=== PATIENT | male | born 1985 | race Caucasian/White ===

== ENCOUNTER 2022-09-07 13:40 | Emergency (ER) | payer OTHER, SELFPAY ==
[2022-09-07 13:58] VITALS: BP 132/88; PULSE 82; RESP 16; TEMP 36.9; O2SAT 99
--- NOTE | 2022-09-07 15:41 | ED.CHESTPAIN ---
HPI - Chest Pain General Chief Complaint: Chest Pain Stated Complaint: Covid+ one week ago, Heart pain Time Seen by Provider: 09/07/22 15:29 History of Present Illness HPI narrative: This 36-year-old male comes in reporting some discomfort in his left anterior chest. This began 3 or 4 days ago soon after drinking some coffee into which he placed some Lion's magaly. This is a mushroom derivative. Soon after that he began to have some chest discomfort and palpitations. He has not used this combination in his coffee before. He is otherwise in good health and has no cardiac risk factors. He arrives here with normal vital signs. He denies having any nausea, vomiting, shortness of breath, or diaphoresis. He did feel some lightheadedness. Related Data Home Medications Medication Instructions Recorded Confirmed Advair Diskus 09/07/22 Allergies Allergy/AdvReac Type Severity Reaction Status Date / Time No Known Drug Allergies Allergy Verified 09/07/22 14:01 Review of Systems Status of ROS Reports: 10 or more systems reviewed and unremarkable except as noted in History and below Narrative Constitutional: No fevers, no weight gain or loss. Eyes: No discharge. No vision changes. HENT: No congestion, no sore throat, no ear pain. Cardiovascular: Episodes of chest discomfort initially started with some palpitations also. Respiratory: No shortness of breath, no wheezes, no cough. Gastrointestinal: No abdominal pain, no vomiting, no diarrhea. Genitourinary: No dysuria, no hematuria. Musculoskeletal: Normal range of motion. Skin: No rashes, no pruritis. Neurological: No dizziness, weakness, sensory change, speech change. Endo/Heme/Allergies: No bruising or bleeding. No polydipsia. Pysch: no suicidality, no anxiety, no insomnia. All other systems reviewed and are negative. Exam Narrative Exam Narrative: Constitutional: Well-developed, well-nourished, no acute distress. HEENT: Normocephalic, atraumatic. Neck: Normal range of motion. Nontender. Supple. Heart: Regular. No murmurs. Normal rate. Intact distal pulses. Lungs: Clear to auscultation. No chest discomfort. No wheezes, rhonchi, or rales. Abdomen: Normal bowel sounds. Nontender. No rebound tenderness. Genitalia: Deferred. Back: No midline tenderness. Normal range of motion. Extremities: Normal range of motion. No injury. Skin: Intact. No rash. Warm. No erythema or pallor. Neurologic: No altered sensation. No weakness. Alert and oriented. Psychiatric: No suicidality. No anxiety or depression. No insomnia. Nursing notes and vitals signs are reviewed. Const Vital Signs, click to edit/add: Vital Signs - 24 hr 09/07/22 13:58 Temperature 98.4 F Pulse Rate [Left Pulse Oximeter] 82 Respiratory Rate 16 Blood Pressure [Right Upper Arm] 132/88 Pulse Oximetry 99 Oxygen Delivery Method Room Air Course Vital Signs Vital signs: Initial Vital Signs Temperature 98.4 F 09/07/22 13:58 Temperature Source Temporal Artery Scan 09/07/22 13:58 Pulse Rate 82 09/07/22 13:58 Pulse Rhythm 09/07/22 13:58 Respiratory Rate 16 09/07/22 13:58 Blood Pressure 132/88 09/07/22 13:58 Blood Pressure Mean 102 09/07/22 13:58 Pulse Oximetry 99 09/07/22 13:58 Oxygen Delivery Method 09/07/22 13:58 Vital Signs Temperature 98.4 F 09/07/22 13:58 Pulse Rate 82 09/07/22 13:58 Respiratory Rate 16 09/07/22 13:58 Blood Pressure 132/88 09/07/22 13:58 Pulse Oximetry 99 09/07/22 13:58 Oxygen Delivery Method 09/07/22 13:58 Temperature 98.4 F 09/07/22 13:58 Pulse Rate 82 09/07/22 13:58 Respiratory Rate 16 09/07/22 13:58 Blood Pressure 132/88 09/07/22 13:58 Pulse Oximetry 99 09/07/22 13:58 Oxygen Delivery Method 09/07/22 13:58 MDM - Chest Pain MDM Narrative Medical decision making narrative: This patient comes in with some chest discomfort as described above. He does not have any cardiac risk factors and arrives with normal vital signs. These symptoms started after taking coffee with Lion's magaly. He is concerned about the possibility of myocarditis. His EKG shows normal sinus rhythm. Lab results are acquired with results pending at the end of my shift. Dr. Pacheco will look after these results and proceed accordingly. Most likely this is an atypical chest discomfort. ECG Data Attestation: I personally reviewed and interpreted this ECG as follows: Interpretation: Normal sinus rhythm. Rate is 74 beats per minute. There are no ST or T-wave abnormalities. Discharge Plan Discharge Clinical Impression: Atypical chest pain Patient Disposition: Home, Self-Care Condition: Stable Additional Instructions: Continue current plans. Follow up with MD or return if worsening. Prescriptions: No Action Advair Diskus Label Comments: as needed Stand Alone Forms: [employer] Info Instructions
[2022-09-07 15:59] LABS: Basophils Absolute Auto 0.02 K/uL (0.00-0.30); Basophils Percent Auto 0.4 % (0.0-3.0); Eosinophils Absolute Auto 0.04 K/uL (0.00-0.50); Eosinophils Percent Auto 0.8 % (0.0-7.0); Hematocrit 43.8 % (37.0-53.0); Hemoglobin* 15.2 gm/dL (13.5-17.5); Lymphocytes Percent Auto 44.6 % (20-44); Mean Corpuscular HGB Conc 35 gm/dL (32-36); Mean Corpuscular Hemoglobin 32 pg (26-34); Mean Corpuscular Volume 91 fL (80-100); Monocytes Percent Auto 7.7 % (0.0-11.0); Neutrophils Absolute Auto 2.22 K/uL (1.7-7.0); Neutrophils Percent Auto 46.5 % (42.0-72.0); Platelet Count* 187 K/uL (140-440); Slide Review Reflex No; White Blood Count* 4.78 K/uL (4.50-11.00)
[2022-09-07 16:11] LABS: Chloride* 106 mmol/L (96-114); Potassium* 4.3 mmol/L (3.6-5.1); Sodium* 141 mmol/L (135-149)
[2022-09-07 16:14] LABS: Blood Urea Nitrogen* 10 mg/dL (5-24); Carbon Dioxide* 27 mmol/L (20-32); Creatinine* 0.8 mg/dL (0.5-1.5); Estimated Glomerular Filt Rate 118 ml/min
[2022-09-07 16:15] LABS: Calcium* 9.3 mg/dL (8.4-10.6); Glucose* 96 mg/dL (60-115)
[2022-09-07 16:18] LABS: C Reactive Protein* < 0.5 mg/dL (0.5-1.0)
== END 2022-09-07 16:56 | disposition home or self-care (01) ==
LOC: ED 16:14
PROVIDERS: Emergency Medicine Emergency Medical Services; Emergency Provider Emergency Medicine
DX: R07.89 Other chest pain (principal)
CPT/HCPCS: 36415; 80048; 84484; 85025; 86140; 93005; 99284